=== PATIENT | male | born 1985 | race African-American/Black ===

== ENCOUNTER 2017-12-01 18:34 | Emergency (ER) | payer OTHER ==
[~2017-12-01] VITALS: Ht 193 cm; Wt 95.3 kg
[~2017-12-01 18:34] MED LIST: FLEXERIL PO; HYDROCODON-ACE1 EAC7 PO; HYDROCODONE-AP1 EAC6 PO; IBUPROFEN 800800 M1 PO; KEFLEX500 MG PO; LOPERAMIDE 2 MG2 M1 PO; NOHOMEMEDICATIONS; ZOFRAN ODT4 MG PO
[2017-12-01] MEDS ORDERED: ULTRAM 50MG TAB50 MG PO (19:07)
[2017-12-01 19:13] VITALS: BP 122/80
== END 2017-12-01 19:14 | disposition home or self-care (01) ==
LOC: M.ERS 18:34
DX: S02.5XXA Fracture of tooth (traumatic), initial encounter for closed fracture (principal); F17.200 Nicotine dependence, unspecified, uncomplicated; F12.10 Cannabis abuse, uncomplicated; X58.XXXA Exposure to other specified factors, initial encounter; Y93.89 Activity, other specified; Y92.89 Other specified places as the place of occurrence of the external cause; Y99.8 Other external cause status